=== PATIENT | male | born 1990 | race African-American/Black ===

== ENCOUNTER 2017-09-15 19:57 | Emergency (ER) | payer MEDICARE, OTHER ==
[~2017-09-15] VITALS: Ht 175.3 cm; Wt 68.0 kg
[~2017-09-15 19:57] MED LIST: VICODIN 5-3001 EACH PO; VITAMIN D250000 UNIT PO; ZYPREXA20 MG PO
== END 2017-09-15 21:03 | disposition home or self-care (01) ==
LOC: ED 19:57
PROC: 0HQ1XZZ Repair Face Skin, External Approach (ICD-10-PCS; principal; 2017-09-15)
DX: S01.111A Laceration without foreign body of right eyelid and periocular area, initial encounter (principal); F29 Unspecified psychosis not due to a substance or known physiological condition; F17.200 Nicotine dependence, unspecified, uncomplicated; Z23 Encounter for immunization; Y04.0XXA Assault by unarmed brawl or fight, initial encounter
CPT/HCPCS: 12013; 90471; 90715; 99282

== ENCOUNTER 2020-03-21 15:55 | Emergency (ER) | payer MEDICARE, OTHER ==
[~2020-03-21] VITALS: Ht 180.3 cm; Wt 87.5 kg
[2020-03-21] MEDS ORDERED: ABILIFY20 MG PO (18:46)
== END 2020-03-21 22:40 ==
LOC: ED 15:55
DX: R45.850 Homicidal ideations (principal); F15.90 Other stimulant use, unspecified, uncomplicated; F20.9 Schizophrenia, unspecified; F17.200 Nicotine dependence, unspecified, uncomplicated; Z79.899 Other long term (current) drug therapy
CPT/HCPCS: 80053; 80176; 81001; 84443; 85025; 99285; G0480

== ENCOUNTER → 2020-10-04 | Emergency (ER) | payer MEDICARE, OTHER ==
[~2020-10-04] VITALS: Ht 180.3 cm; Wt 87.5 kg
[~2020-10-04] MED LIST changes: +ABILIFY20 MG PO
--- NOTE | 2020-10-06 13:32 | EKG ---
[facility] [address] [facility] [place] [address] Signed Normal sinus rhythm Normal ECG No previous ECGs available Confirmed by BRITTON COLLADO MD ([id number]) on 10/06/2020 1:32:19 PM Electronically Signed By: BRITTON COLLADO MD 10/06/20 1332 PATIENT NAME: SABRA CASTELLANO Electrocardiogram DATE OF : 88 PHYSICIAN: BRITTON COLLADO MD REPORT #: [id number] REPORT IS CONFIDENTIAL AND NOT TO BE RELEASED WITHOUT AUTHORIZATION
== END ==
LOC: ED 09:05
DX: F20.9 Schizophrenia, unspecified (principal); F17.200 Nicotine dependence, unspecified, uncomplicated; Z20.822 Contact with and (suspected) exposure to COVID-19
CPT/HCPCS: 80053; 80176; 81001; 84443; 85025; 93005; 93010; 96372; 99285-25; C9803; U0003

== ENCOUNTER 2020-12-08 15:32 | Emergency (ER) | payer MEDICARE, OTHER ==
[~2020-12-08] VITALS: Ht 180.3 cm; Wt 59.0 kg
== END 2020-12-08 17:25 | disposition home or self-care (01) ==
LOC: ED 15:32
DX: S01.112A Laceration without foreign body of left eyelid and periocular area, initial encounter (principal); F17.200 Nicotine dependence, unspecified, uncomplicated; W50.0XXA Accidental hit or strike by another person, initial encounter
CPT/HCPCS: 99284

== ENCOUNTER 2021-02-05 12:32 | Emergency (ER) | payer MEDICARE, OTHER ==
[~2021-02-05] VITALS: Ht 180.3 cm; Wt 59.0 kg
[2021-02-06] MEDS ORDERED: OLANZAPINE10 MG PO (07:21)
[2021-02-06] MEDS ORDERED: ZYPREXA15 MG PO (07:22)
--- NOTE | 2021-02-07 12:37 | EKG ---
[facility] [address] [facility] [place] [address] Signed Sinus bradycardia Otherwise normal ECG When compared with ECG of 04-OCT-2020 11:11, Vent. rate has decreased BY 25 BPM Confirmed by RL ESTEVEZ DO ([id number]) on 02/07/2021 12:37:41 PM Electronically Signed By: RL ESTEVEZ DO 02/07/21 1237 PATIENT NAME: CASTELLANOSABRA Electrocardiogram DATE OF : 88 PHYSICIAN: RL ESTEVEZ DO REPORT #: [id number] REPORT IS CONFIDENTIAL AND NOT TO BE RELEASED WITHOUT AUTHORIZATION
== END 2021-02-06 19:25 | disposition short-term general hospital (02) ==
LOC: ED 12:32
DX: F20.9 Schizophrenia, unspecified (principal); F17.200 Nicotine dependence, unspecified, uncomplicated; Z79.899 Other long term (current) drug therapy; Z20.822 Contact with and (suspected) exposure to COVID-19
CPT/HCPCS: 80053; 80176; 81001; 84443; 85025; 93005; 93010; 96372; 99285-25; A9270-GY; C9803; U0003

== ENCOUNTER 2021-04-25 12:03 | Emergency (ER) | payer MEDICARE, OTHER ==
[~2021-04-25] VITALS: Ht 180.3 cm; Wt 59.0 kg
[~2021-04-25 12:03] MED LIST changes: +OLANZAPINE10 MG PO; +ZYPREXA15 MG PO
--- NOTE | 2021-04-25 20:17 | EKG ---
[facility] [address] [facility] [place], [place] [address] Signed Sinus bradycardia Otherwise normal ECG When compared with ECG of 06-FEB-2021 11:46, No significant change was found Confirmed by RL ESTEVEZ DO ([id number]) on 04/25/2021 8:17:21 PM Electronically Signed By: RL ESTEVEZ DO 04/25/212016 PATIENT NAME: KEYANNA CASTELLANOALFONSO AMEZQUITA Electrocardiogram DATE OF : 88 PHYSICIAN: RL ESTEVEZ DO REPORT #: [id number] REPORT IS CONFIDENTIAL AND NOT TO BE RELEASED WITHOUT AUTHORIZATION
== END 2021-04-25 14:20 | disposition short-term general hospital (02) ==
LOC: ED 12:03
DX: Z04.6 Encounter for general psychiatric examination, requested by authority (principal); F17.200 Nicotine dependence, unspecified, uncomplicated; Z79.899 Other long term (current) drug therapy
CPT/HCPCS: 80053; 81001; 84443; 85025; 93005; 93010; 99284-25; G0480